=== PATIENT | female | born 1970 | race African-American/Black ===

== ENCOUNTER 2017-11-12 21:17 | Emergency (ER) | payer SELFPAY ==
[~2017-11-12] VITALS: Ht 154.9 cm; Wt 59.0 kg
[2017-11-12 21:24] VITALS: BP 117/117
== END 2017-11-12 23:30 | disposition left against medical advice (07) ==
LOC: ER 22:04
DX: R06.02 Shortness of breath (principal); Z53.21 Procedure and treatment not carried out due to patient leaving prior to being seen by health care provider

== ENCOUNTER 2020-04-25 15:28 | Emergency (ER) | payer SELFPAY ==
[~2020-04-25] VITALS: Ht 152.4 cm; Wt 52.0 kg
[2020-04-25] MEDS: BUPROPION HCL 75MG TABLET PO ONE ×2 (16:27→16:36)
[2020-04-25 16:37] VITALS: BP 129/72
== END 2020-04-25 16:38 | disposition home or self-care (01) ==
LOC: ER 15:45
DX: F33.9 Major depressive disorder, recurrent, unspecified (principal); R53.1 Weakness; Z76.0 Encounter for issue of repeat prescription; I10 Essential (primary) hypertension
CPT/HCPCS: 93005; 99283

== ENCOUNTER 2020-04-25 18:03 | Emergency (ER) | payer SELFPAY ==
[~2020-04-25] VITALS: Ht 172.7 cm; Wt 65.0 kg
[2020-04-25 18:06] VITALS: BP 167/108
== END 2020-04-25 19:07 | disposition left against medical advice (07) ==
LOC: ER 18:03
DX: Z53.21 Procedure and treatment not carried out due to patient leaving prior to being seen by health care provider (principal)

== ENCOUNTER 2020-05-19 17:45 | Emergency (ER) | payer BC ==
[~2020-05-19] VITALS: Ht 154.9 cm; Wt 50.0 kg
[2020-05-19] MEDS ORDERED: SODIUM CHLORIDE 0.9% 1,000 ML IV ONE (18:45)
[2020-05-19 19:48] LABS: CHLORIDE 107 mEq/L (98-107)
[2020-05-19 19:49] LABS: BASOPHILS % 0.5 % (0.0-2.0); EOSINOPHILS % 2.7 % (0.0-5.0); HEMATOCRIT. 36.3 % (36.0-48.0); HEMOGLOBIN. 12.2 g/dL (12.0-16.0); LYMPHOCYTES % 24.8 % (20.0-50.0); MEAN CORPUSCULAR HEMOGLOBIN 27.3 pg (28.0-32.0); MEAN CORPUSCULAR VOLUME 81.3 fL (81.0-99.0); MEAN PLATELET VOLUME 7.4 fl (7.4-10.4); MONOCYTES % 7.1 % (2.0-8.0); NEUTROPHILS % 64.9 % (40.0-76.0); PLATELET 335 x1000/uL (130-400); RED BLOOD CELL COUNT 4.46 mill/uL (4.2-5.4); RED CELL DISTRIBUTION WIDTH 14.7 % (11.6-14.6)
[2020-05-19 19:52] LABS: ETHANOL BLOOD < 10 mg/dL
[2020-05-19 19:59] LABS: HCG SCREEN NEGATIVE
[2020-05-19 21:15] LABS: CLARITY URINE CLEAR (CLEAR); COLOR URINE YELLOW (YELLOW); KETONES URINE NEGATIVE (NEGATIVE); LEUKOCYTE ESTERASE URINE NEGATIVE (NEGATIVE); NITRITE URINE NEGATIVE (NEGATIVE); OCCULT BLOOD URINE NEGATIVE (NEGATIVE); PROTEIN URINE NEGATIVE (NEGATIVE); UROBILINOGEN URINE 0.2 E.U./dL (0.2-1.0)
[2020-05-19 21:30] LABS: *AMPHETAMINES SCREEN URINE NEGATIVE (NEGATIVE); *BARBITURATES SCREEN URINE NEGATIVE (NEGATIVE); *BENZODIAZEPINES SCREEN URINE NEGATIVE (NEGATIVE); *COCAINE SCREEN URINE NEGATIVE (NEGATIVE)
[2020-05-19 21:31] LABS: CANNABINOID URINE SCREEN NEGATIVE (NEGATIVE); METHADONE URINE SCREEN NEGATIVE (NEGATIVE); OPIATES URINE SCREEN NEGATIVE (NEGATIVE); PHENCYCLIDINE URINE SCREEN NEGATIVE (NEGATIVE)
[2020-05-21 13:28] VITALS: BP 128/75
== END 2020-05-21 13:27 ==
LOC: ER 17:45
DX: Z03.818 Encounter for observation for suspected exposure to other biological agents ruled out (principal); T46.4X2A Poisoning by angiotensin-converting-enzyme inhibitors, intentional self-harm, initial encounter; T43.592A Poisoning by other antipsychotics and neuroleptics, intentional self-harm, initial encounter; I10 Essential (primary) hypertension; F31.9 Bipolar disorder, unspecified; Y92.89 Other specified places as the place of occurrence of the external cause; Z75.1 Person awaiting admission to adequate facility elsewhere
CPT/HCPCS: 36415; 71045; 80053; 80305; 80307; 80320; 80329; 81003; 81025; 84703; 85025; 93005; 96360; 99285; J7030; G0480